=== PATIENT | male | born 1960 | race Caucasian/White ===

== ENCOUNTER 2018-06-19 12:47 | Emergency (ER) | payer BC ==
[~2018-06-19] VITALS: Ht 180.3 cm; Wt 97.5 kg
[~2018-06-19 12:47] MED LIST: AMLO5TAB4
[2018-06-19 12:54] VITALS: BP_SYST 123
--- NOTE | 2018-06-19 12:58 | NUR ---
Patient to ER bed 05 to gown for evaluation. Side rails up. Report given to Dahlia BRINK.
--- NOTE | 2018-06-19 13:01 | NUR ---
Pt AAOx4 ambulated into ED c/o 11/08 pain and swelling to L wrist s/p trip and fall last night. Denies KO/N/V/blurred vision. No active bleeding. Pain increases upon palpation and movement. Cap refill <3. Pt denies taking medication for pain. No other injuries/complaints per pt/noted. Will continue to monitor.
--- NOTE | 2018-06-19 13:06 | NUR ---
ER Dr. Conway at bedside examining patient.
[2018-06-19 13:46] VITALS: BP_SYST 118
--- NOTE | 2018-06-19 13:46 | NUR ---
Patient given written and verbal discharge instructions and verbalizes understanding. ER MD Conway discussed with patient the results and treatment provided. Patient in stable condition. ID arm band removed. Rx of Naproxen given. Patient educated on pain management and to follow up with PMD. Pain Scale 5. Opportunity for questions provided and answered. Medication side effect fact sheet provided.
== END 2018-06-19 13:46 | disposition home or self-care (01) ==
LOC: SED 12:47
DX: S63.502A Unspecified sprain of left wrist, initial encounter (principal); I10 Essential (primary) hypertension; W01.0XXA Fall on same level from slipping, tripping and stumbling without subsequent striking against object, initial encounter; Y93.89 Activity, other specified; Y92.89 Other specified places as the place of occurrence of the external cause; Y99.8 Other external cause status
CPT/HCPCS: 99283